=== PATIENT | male | born 1950 | race Caucasian/White ===

== ENCOUNTER 2017-05-01 16:50 | Emergency (ER) | payer MEDICARE ==
[2014-11-14 10:08] VITALS: BMI 28.7
[~2017-05-01 16:50] MED LIST: ADDERALL 30 MG30 MG PO; AZOR 5-20 MG TA1 TAB PO; EFFEXOR XR37.5 MG PO; EFFEXOR25 MG PO; ELIQUIS5 MG PO; ENDOCET 10-3251 TAB PO; HYDROCODONE-APA1 TAB PO; LOPRESSOR25 MG PO; NICODERM C1 PATCH .2 TRANSDERM; TORADOL10 MG PO; VALIUM10 MG PO
== END 2017-05-01 19:45 | disposition home or self-care (01) ==
LOC: D.ER 16:50
DX: M54.5 Low back pain (principal); M54.30 Sciatica, unspecified side; F17.200 Nicotine dependence, unspecified, uncomplicated